=== PATIENT | male | born 1960 | race Caucasian/White ===

== ENCOUNTER 2017-12-16 09:57 | Observation (INO) | payer BC ==
[2017-12-16 11:50] LABS: ABS Basophils 0.1 10^3/ul (0-0.2); ABS Eosinophils 0.3 10^3/ul (0-0.6); ABS Lymphocytes 1.3 10^3/ul (1.0-4.8); ABS Monocytes 0.3 10^3/ul (0-0.8); ABS Nucleated RBC 0 10^3/ul; Eosinophil % 4.4 % (0-6); Hematocrit 39 % (42-52); Hemoglobin 13.2 g/dl (14.0-18.0); Lymphocyte % 22.3 % (25-47); Mean Corpuscular HGB Conc 34 g/dl (31-36); Mean Corpuscular Hemoglobin 33 pg (27-31); Mean Corpuscular Volume 97 fL (80-94); Mean Platelet Volume 7 um3 (7.4-10.4); Nucleated Red Blood Cells % 0; Platelet Count 328 10^3/ul (150-450); Red Blood Count 4.01 10^6/ul (4.0-5.4); Red Cell Distribution Width 14 % (10.5-15)
[2017-12-16 11:55] LABS: INR 0.93 (0.77-1.02)
[2017-12-16 12:07] LABS: EGFR Non-African American 79.1 (>60)
--- NOTE | 2017-12-16 12:19 | RAD ---
Indication: Chest pain. Single frontal view of the chest performed at 1135 hours was reviewed. Comparison is made with previous exam dated January 10, 2012. No mediastinal shift is noted. Heart is of normal size and configuration. Lung kumar appear clear. IMPRESSION: NO ACTIVE CARDIOPULMONARY DISEASE IS NOTED.
[2017-12-16] MEDS ORDERED: NS 0.9% 1000 ML* 1,000 ML IV SCH (13:15)
[2017-12-16] MEDS ORDERED: Atorvastatin* 80 MG TAB PO ONE (13:22)
[2017-12-16] MEDS ORDERED: Acetaminophen TAB* 325 MG PO PRN (13:22)
[2017-12-16] MEDS ORDERED: Ondansetron INJ* 2 MG/ML VIAL IV PRN (13:22)
[2017-12-16] MEDS: Heparin VIAL(*) 5000 UNITS/ML VIAL (FIVE THOUSAND) SUBCUT SCH ×2 (15:46→21:27)
[2017-12-16] MEDS ORDERED: Influenza VAC *QUAD* 2017-18* 0.5 ML SYRINGE IM ONE (17:00)
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
[2017-12-17] MEDS: Heparin VIAL(*) 5000 UNITS/ML VIAL (FIVE THOUSAND) SUBCUT SCH (05:30)
[2017-12-17] MEDS ORDERED: Aspirin EC Low Dose* 81 MG TAB.EC PO SCH (09:00)
--- NOTE | 2017-12-17 10:20 | RAD ---
Edited for charges. Indication: Chest pain. Myocardial perfusion scan was performed utilizing 1 day protocol. Rest myocardial perfusion was performed after intravenous injection of 10.4 mCi of technetium 99 and tetrofosmin. Pharmacological stress was applied and 26.02 mCi of technetium 99 and tetrofosmin was injected for the stress portion of the study. There is homogeneous distribution of the radiotracer throughout the left ventricle. There is no definite fixed or reversible perfusion defect identified. The ejection fraction at stress is 60%. Evaluation of wall motion demonstrates no focal wall motion abnormality. IMPRESSION: No fixed or reversible perfusion defects are identified. ASSESSMENT: Low risk Based on imaging criteria from ACC/AHA 2002 Guideline Update for the Management of Patients With Chronic Stable Angina Table 23. Noninvasive Risk Stratification. MTDD
[2017-12-17 11:09] VITALS: BP 118/59
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
--- NOTE | 2017-12-18 11:36 | DS ---
CC: Dr. Colby Ivey * DISCHARGE SUMMARY: DATE OF ADMISSION: 12/16/17 DATE OF DISCHARGE: 12/17/17 PRIMARY CARE PROVIDER: Dr. Colby Ivey. PRIMARY DIAGNOSIS: Chest pain. SECONDARY DIAGNOSIS: Include prediabetes. MEDICATIONS ON DISCHARGE: None. PERTINENT LABORATORY DATA: Hemoglobin A1c is 6.3, triglycerides 343, cholesterol 206, LDL 106, HDL 31, iron 75, TIBC 3, 111 percent, iron saturation is 24, ferritin is 209, hemoglobin is 13.2. PROCEDURES PERFORMED DURING HOSPITAL STAY: Exercise stress test with nuclear imaging. Impression: Low risk. No fixed or reversible perfusion defects are identified. EF at stress is 60%. HISTORY OF PRESENT ILLNESS AND HOSPITAL COURSE: This is a 57-year-old gentleman , relatively unknown to the medical community with no known past medical history. For that reason, he presented to the hospital, sudden onset of substernal chest pressure associated with lightheadedness, nausea, was admitted to the hospital, had serial troponins, all remains 0.00. Underwent exercise stress test and nuclear imaging with results as indicated above. There are no other complications during the patient's hospital stay and he was discharged without complication. At followup please; 1. Hemoglobin A1c is 6.3%, was not started on any new medications, can consider addition of low dose metformin. 2. Iron studies sent for hemoglobin of 13.2 noted to be around this level since 2012. Additional workup for anemia is indicated. 3. TSH noted to be 5.9. No free T3 or T4. Can follow in 4 to 6 weeks. 4. No other specific labs or vitals that need followup. Reasons to return to the hospital including, but not limited to, recurrent or worsening symptoms including chest pain, shortness of breath, nausea, vomiting, lightheadedness, loss of consciousness, or near loss of consciousness. This was discussed with the patient and his . They acknowledged understanding. TIME SPENT: Greater than 60 minutes was spent on discharge of this patient, greater than half was spent [id number] with the patient. [id number]/[facility] #: [id number] [facility]
== END 2017-12-17 13:45 | disposition home or self-care (01) ==
LOC: ED 09:57 → MEDTELE 13:11 → INTOOBSV 13:11
PROVIDERS: ADMIT Internal Medicine; ATTEND Internal Medicine
DX: R07.9 Chest pain, unspecified (principal); R73.03 Prediabetes; Z87.891 Personal history of nicotine dependence; Z23 Encounter for immunization; R42 Dizziness and giddiness; R11.0 Nausea; Z82.49 Family history of ischemic heart disease and other diseases of the circulatory system; D50.9 Iron deficiency anemia, unspecified
CPT/HCPCS: 36415; 71045; 78452; 80053; 80061; 82607; 82728; 82746; 83036; 83540; 83550; 83605; 84443; 84484; 85025; 85610; 90471; 90686; 93005; 93017; 96372; 99283; A9270-GY; A9502; G0008; G0378; J1644